=== PATIENT | female | born 1995 | race Caucasian/White ===

== ENCOUNTER 2017-05-18 08:46 | Emergency (ER) | payer OTHER ==
[~2017-05-18] VITALS: Ht 170.2 cm; Wt 62.5 kg
[2017-05-18 08:48] VITALS: Ht 170.2 cm; Wt 62.5 kg
--- NOTE | 2017-05-18 09:10 | ERD ---
ER Documentation Chief Complaint Chief Complaint UPPER LT ABD PAIN HPI 21-year-old female, previously healthy, presents to the emergency department with her mother, complaining of 1 week of intermittent abdominal pain , located on the left upper quadrant, described as sharp and sometimes burning. The pain is 5 out of 10, and it seems that it gets worse by stress. The patient denies fever, chills, nausea, diarrhea or vomiting. No urinary symptoms. No treatment attempted at this time ROS SYSTEMIC symptoms: No fever, no chills, no night sweats EYE symptoms: No eyesight problems. OTOLARYNGEAL symptoms: No hearing loss. CARDIOVASCULAR symptoms: No chest pain or discomfort, no palpitations. PULMONARY symptoms: No dyspnea, no cough, no wheezing. GASTROINTESTINAL symptoms: abdominal pain, no nausea, no vomiting SKIN no rashes MUSCULOSKELETAL symptoms: No arthralgias, no muscle aches. NEUROLOGY symptoms: No headache, no confusion, no syncope, no numbness or tingling. All systems reviewed and are negative except as per history of present illness. Medications Home Meds Active Scripts Acetaminophen* (Tylenol*) 325 Mg Tablet, 1 TAB PO Q6 Y for PAIN AND OR ELEVATED TEMP, #20 TAB Prov:YARON SIMPSON MD 05/18/17 Ranitidine Hcl* (Zantac*) 150 Mg Tablet, 150 MG PO BID Y for EPIGASTRIC PAIN, # 30 TAB Prov:YARON SIMPSON MD 05/18/17 Allergies Allergies: Coded Allergies: No Known Allergy (Unverified , 05/18/17) Physical Exam Vitals Vital Signs Date Time Temp Pulse Resp B/P Pulse Ox O2 Delivery O2 Flow Rate FiO2 05/18/17 08:48 98.1 100 17 128/76 98 Physical Exam Patient is in no acute distress, vital signs stable. Alert and fully oriented. EYES: PERRLA, EOMI, Sclera and conjunctiva appear normal. EARS: Canals clear, tympanic membranes WNL THROAT: Normal oropharynx. NECK: Supple, No lymphadenopathy. Full ROM without pain or tenderness. HEART: RRR, no rubs, murmurs, clicks or gallops. LUNGS: Clear to auscultation. ABDOMEN: Soft, non-tender without masses or hepatosplenomegaly. No peritoneal signs EXTREMITIES: No edema bilaterally. MUSC: Full ROM, no deformity, normal back exam Results 24 hrs Laboratory Tests Test 05/18/17 09:54 Bedside Urine pH (LAB) 6.5 Bedside Urine Protein (LAB) Negative Bedside Urine Glucose (UA) Negative Bedside Urine Ketones (LAB) Negative Bedside Urine Blood 2+ Bedside Urine Nitrite (LAB) Negative Bedside Urine Leukocyte Esterase (L Trace Procedures/MDM 21-year-old female, previously healthy, presents with left upper abdominal pain , sharp, sometimes burning, for the last week. Differential diagnosis includes gastritis, kidney stone, UTI, less likely pancreatitis, appendicitis. Physical examination unremarkable, abdomen benign, urine showed mild traces of blood which are not indicative for UTI most likely clinical presentation consistent with gastritis. The patient will be discharged home with a prescription for ranitidine and acetaminophen as needed for pain and follow-up with her primary physician in 2-4 days. The patient was instructed to return to the emergency department for persistent or worsening of symptoms Departure Diagnosis: Primary Impression: Abdominal pain Additional Impression: Gastritis Condition: Stable Patient Instructions: Abdominal Pain, Understanding Gastritis Additional Instructions: Thank you very much for allowing us to participate in your care. It was a pleasure seen you today here at [facility]. Please schedule a follow up appointment with your primary doctor in 2 days and bring all the information and prescriptions that we have given to you today. If the doctor is unavailable and the symptoms persist or worsen, the patient should return to the hospital immediately. YARON SIMPSON MD May 18, 2017 09:10
[2017-05-18 09:56] LABS: URINE BLOOD (Dip) POC 2+ (NEGATIVE)
[2017-05-18] MEDS ORDERED: RANI150T9 PO (10:07)
[2017-05-18] MEDS ORDERED: ACET325T33 PO (10:07)
== END 2017-05-18 10:28 | disposition home or self-care (01) ==
LOC: FTE 08:46
DX: K29.70 Gastritis, unspecified, without bleeding (principal)
CPT/HCPCS: 81003; 99283

== ENCOUNTER 2018-06-20 18:19 | Emergency (ER) | END 2018-06-20 21:09 | disposition home or self-care (01) ==

== ENCOUNTER 2018-06-22 10:54 | Emergency (ER) | END 2018-06-22 12:42 | disposition home or self-care (01) ==